=== PATIENT | male | born 1990 | race Two or more races ===

== ENCOUNTER 2023-12-19 17:21 | Emergency (ER) | payer OTHER ==
[~2023-12-19] VITALS: Ht 180.3 cm; Wt 75.7 kg
[2023-12-19] MEDS ORDERED: CEFTRIAXONE SODIUM 1,000 MG VIAL IM ONE (18:30)
[2023-12-19] MEDS ORDERED: TETANUS & DIPHTHERIA TOX,ADULT 0.5 ML VIAL IM ONE (18:30)
== END 2023-12-19 20:45 | disposition home or self-care (01) ==
LOC: ER 17:23
DX: S61.219A Laceration without foreign body of unspecified finger without damage to nail, initial encounter (principal); W45.8XXA Other foreign body or object entering through skin, initial encounter; Y93.89 Activity, other specified; Y92.89 Other specified places as the place of occurrence of the external cause; Y99.8 Other external cause status
CPT/HCPCS: 12001; 90471; 90714; J1670

== ENCOUNTER 2024-01-01 07:39 | Emergency (ER) | payer OTHER ==
[~2024-01-01] VITALS: Ht 180.3 cm; Wt 75.7 kg
== END 2024-01-01 10:45 | disposition home or self-care (01) ==
LOC: ER 07:41
DX: Z48.02 Encounter for removal of sutures (principal)